=== PATIENT | male | born 1930 | race Caucasian/White ===

== ENCOUNTER → 2019-02-10 | Outpatient (CLI) | payer MEDICARE ==
[~2019-02-10] MED LIST: HOLD METFORMIN - RECEIVED CONTRAST 20 ML VIAL IV SCH; IOHEXOL 350 MG/ML 100 ML (OMNIPAQUE 350) VIAL IV ONE
[2019-02-10 12:25] LABS: ALANINE AMINOTRANSFERASE 13 U/L (0-55); ALBUMIN 4.1 GM/DL (3.2-4.5); ALKALINE PHOSPHATASE 136 U/L (40-136); BILIRUBIN,TOTAL 0.8 MG/DL (0.1-1.0); BUN/CREATININE RATIO 15; CARBON DIOXIDE 27 MMOL/L (21-32); CHLORIDE 106 MMOL/L (98-107); CREATININE SERUM 0.78 MG/DL (0.60-1.30); GFR ESTIMATED > 60; GLUCOSE 102 MG/DL (70-105); POTASSIUM 4.3 MMOL/L (3.6-5.0); SODIUM 142 MMOL/L (135-145); TOTAL PROTEIN 7.4 GM/DL (6.4-8.2)
--- NOTE | 2019-02-10 15:11 | Diagnostic Imaging Report ---
INDICATION: Hypertension. TECHNIQUE: CT imaging of the abdomen is performed after bolus intravenous administration of iodinated contrast with 3-D reformatted images produced. FINDINGS: There are prominent interstitial markings seen in the lung bases likely due to areas of scarring. There is no focal hepatic, gallbladder, or splenic abnormality. There is an approximately 1 cm in diameter low-density nodule in the tail of the pancreas, which may be cystic in nature. There is no evidence of an adrenal gland lesion. There are multiple nonobstructing calculi within the kidneys. The largest in the upper pole of the left kidney reaches 0.6 cm with an elongated calcification in the middle pole of the right kidney reaching 0.9 cm. There is good opacification of the abdominal aorta without evidence of aneurysmal dilatation. There is, however, moderate mural thickening indicating atherosclerotic disease. There is a linear filling defect in the distal aorta just above the bifurcation, which could represent minimal dissection or possible ulcerating plaque. There is no evidence of pseudoaneurysm. No retroperitoneal hematoma or contrast extravasation is identified. There are a total of three right renal arteries with main right renal artery demonstrating mild diffuse atherosclerotic plaque in the proximal third. Accessory right renal arteries are small. There is moderate atherosclerotic plaque near the origin of the left main renal artery resulting in at least 50% stenosis. There is also mild left hydronephrosis. Celiac trunk and superior mesenteric artery are widely patent. There is patent inferior mesenteric artery as well. 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 Stenosis is slightly greater on the left reaching at least 50%. In addition, there are accessory aortic branches supplying upper and lower poles of the right kidney. 1 cm nodule in the pancreatic tail could be cystic although clinical correlation would be useful. This could be further evaluated with short-term CT or MRI follow-up in 3-4 months. Dictated by: Dictated on workstation # [id number]
== END ==
LOC: RAD 11:32
PROVIDERS: ATTEND Family Medicine
DX: I70.1 Atherosclerosis of renal artery (principal); K86.89 Other specified diseases of pancreas; I10 Essential (primary) hypertension
CPT/HCPCS: 36415; 74175; 80053